=== PATIENT | female | born 1995 | race Caucasian/White ===

== ENCOUNTER 2018-02-05 21:15 | Emergency (ER) | payer BC ==
[~2018-02-05] VITALS: Ht 165.1 cm; Wt 111.0 kg
[~2018-02-05 21:15] MED LIST: CARI350T PO; CYCL-1 PO
[2018-02-05] MEDS ORDERED: ACYC-202 PO (22:06)
[2018-02-05 22:42] VITALS: BP 115/75
== END 2018-02-05 22:43 | disposition home or self-care (01) ==
LOC: ER 21:15
DX: B02.9 Zoster without complications (principal); Z90.49 Acquired absence of other specified parts of digestive tract; Z79.899 Other long term (current) drug therapy
CPT/HCPCS: 99283

== ENCOUNTER 2020-03-16 09:23 | Emergency (ER) | payer BC ==
[~2020-03-16] VITALS: Ht 165.1 cm; Wt 90.0 kg
[2020-03-16] MEDS ORDERED: normal saline 1000ml 1,000 ML IV ONE (10:10)
--- NOTE | 2020-03-16 10:10 | NUR ---
SPOKE WITH PT'S FATHER TIEN, CALL AT [phone] TO GIVE UPDATES
[2020-03-16] MEDS ORDERED: aspirin 81mg tab.chew PO ONE (10:20)
[2020-03-16 10:26] LABS: BASOPHILS # (AUTO) 0.1 X10'3 (0-0.2); BASOPHILS % (AUTO) 0.9 % (0-1); EOSINOPHILS # (AUTO) 0.3 X10'3 (0-0.9); EOSINOPHILS % (AUTO) 2.6 % (0-6); HEMATOCRIT 36.5 % (35.0-45.0); HEMOGLOBIN 12.6 g/dl (12.0-16.0); LYMPHOCYTES # (AUTO) 2.8 X10'3 (1.1-4.8); LYMPHOCYTES % (AUTO) 28.5 % (21-51); MEAN CORPUSCULAR HEMOGLOBIN 32.3 PG (27.0-31.0); MEAN CORPUSCULAR HGB CONC 34.6 g/dL (33.0-36.5); MEAN CORPUSCULAR VOLUME 93.5 FL (78-98); MONOCYTES # (AUTO) 0.6 X10'3 (0-0.9); MONOCYTES % (AUTO) 5.9 % (2-12); NEUTROPHILS # (AUTO) 6.1 X10'3 (1.8-7.7); NEUTROPHILS % (AUTO) 62.1 % (42-75); PLATELET COUNT 311 X10'3 (140-440); RED CELL DISTRIBUTION WIDTH 12.6 % (11.5-14.5); WHITE BLOOD COUNT 9.8 X10'3 (4.5-11.0)
[2020-03-16 10:37] LABS: ALANINE AMINOTRANSFERASE 20 U/L (12-78); ALBUMIN 3.6 G/DL (3.4-5.0); ALBUMIN/GLOBULIN RATIO 0.9 (1.1-1.5); ALKALINE PHOSPHATASE 95 IU/L (46-116); ANION GAP 14 (8-16); ASPARTATE AMINO TRANSFERASE 16 U/L (10-37); BILIRUBIN,TOTAL 0.5 MG/DL (0.1-1.0); BLOOD UREA NITROGEN 13 MG/DL (7-18); BUN/CREATININE RATIO 18.1 (6.6-38.0); CHLORIDE 104 MMOL/L (99-107); CREATININE 0.72 MG/DL (0.40-0.90); GLUCOSE 90 MG/DL (70-104); POTASSIUM 3.4 MMOL/L (3.5-5.1); SODIUM 140 MMOL/L (135-145); TOTAL PROTEIN 7.8 G/DL (6.4-8.2); eGFR > 90 ML/MIN
[2020-03-16 10:44] LABS: MAGNESIUM 1.9 MG/DL (1.5-2.4)
[2020-03-16] MEDS ORDERED: LORazepam 2 mg/ml vial IV ONE (11:00)
[2020-03-16 11:24] LABS: D-DIMER 0.33 MG/L FEU (0-0.50)
--- NOTE | 2020-03-16 13:38 | NUR ---
AWAITING LAB DRAW FOR NEXT TROPONIN
[2020-03-16 14:28] VITALS: BP 112/75
== END 2020-03-16 14:32 | disposition home or self-care (01) ==
LOC: ER 09:24
DX: R07.89 Other chest pain (principal); R06.02 Shortness of breath; Z90.49 Acquired absence of other specified parts of digestive tract; Z79.899 Other long term (current) drug therapy
CPT/HCPCS: 36415; 71045; 80053; 83735; 83880; 84484; 85025; 85379; 93005; 96361; 96374; 99285; J2060; J7030

== ENCOUNTER 2021-06-28 13:41 | Emergency (ER) | payer BC ==
[~2021-06-28] VITALS: Ht 165.1 cm; Wt 103.6 kg
[2021-06-28 14:02] VITALS: BP 123/76
== END 2021-06-28 16:24 | disposition home or self-care (01) ==
LOC: ER 13:42
DX: B34.9 Viral infection, unspecified (principal); Z20.822 Contact with and (suspected) exposure to COVID-19; R05.9 Cough, unspecified; R09.81 Nasal congestion; J45.909 Unspecified asthma, uncomplicated; Z90.49 Acquired absence of other specified parts of digestive tract; Z91.018 Allergy to other foods; Z79.899 Other long term (current) drug therapy
CPT/HCPCS: 87635; 99283; C9803